=== PATIENT | female | born 1960 | race Caucasian/White ===

== ENCOUNTER 2017-06-09 13:17 | Inpatient (IN) | payer MEDICARE, MEDICAID ==
[~2017-06-09] VITALS: Ht 170.1 cm; Wt 83.7 kg
--- NOTE | ~2017-06-09 | ST ---
[place], [place] EXERCISE STRESS TEST REPORT NAME: [facility]LES [facility]ASSIDY [facility] #[facility] [id number] UNIT #: [id number] ROOM: 511 DOCTOR: JOHNY JORDAN MD BIRTHDATE: [birth year] DOS: INDICATION: Chest pain. PROCEDURE: The patient was brought into the stress lab. The procedure was explained with risks, benefits, and alternatives. Lexiscan was injected. The patient tolerated the procedure well. BLOOD PRESSURE RESPONSE: Resting blood pressure 104/70 with ending blood pressure 122/72. ELECTROCARDIOGRAM INTERPRETATION: The resting electrocardiogram showing profound bradycardia, heart rate of 46 with poor R-wave progression, mild nonspecific ST-T changes. Following the infusion, there was no evidence of any significant ST or T-wave changes suggestive of myocardial ischemia. No arrhythmias were noted. SUMMARY: 1. Adequate Lexiscan stress test. 2. Negative Lexiscan stress test for stress induced myocardial ischemia. 3. No arrhythmias were noted. 4. Myoview results will be reported separately. JOHNY JORDAN MD CM:STRESS:EXERCISE STRESS TEST REPORT [id number] JOHNY JORDAN MD
--- NOTE | ~2017-06-09 | CON ---
[place], [place] REPORT OF CONSULTATION NAME: MYLES CASSIDY UNIT #: [id number] ROOM: 511 DOCTOR: JULIAN YUANELYSIAMEEK BIRTHDATE: [birth year] DOS: REQUESTING PHYSICIAN: Dr. Lai. REASON FOR CONSULTATION: Chest pain. ASSESSMENT: 1. Current presentation with chest pain. 2. Unknown level of lipid. 3. Active tobacco abuse. 4. Significant early family history of heart disease. 5. Obesity with probable obstructive sleep apnea. PLAN: 1. Cycle cardiac enzymes. 2. Keep patient n.p.o. for Lexiscan stress test. 3. Enteric-coated aspirin 81 mg. 4. Check fasting lipid panel with management for an LDL less than 100 mg/dL. 5. Exercise and weight loss. 6. Consider sleep study. 7. Okay to discharge home should the stress test be without any evidence of ischemia. 8. Followup in our clinic within 2-3 months as an outpatient. 9. Call for any change in symptoms at any time. HISTORY AND PHYSICAL: The patient is a pleasant 56-year-old female, unknown to our practice, was referred by Dr. Lai for further evaluation of complaint of chest pain that apparently has been going for the past 3 days. The pain is substernal, slightly more towards the right. It is rated almost 6-7/10, nonradiating, without any associated nausea, vomiting or diaphoresis. The pain occurs; it can last up to 30 minutes. It can slightly worsen with activity. She is also reporting some shortness of breath, dyspnea on exertion with these activities. The patient does not follow a regular exercise program, but she is still able to go shopping. She sleeps on one pillow with no reported PND, orthopnea or pedal edema. Occasional skipped beats lasting seconds with no evidence associated cardiac complaints. No fever. No chills. No night sweats. Maintains good appetite. No weight loss. No change in what she can do now compared with 6 months ago. PAST MEDICAL HISTORY: As detailed in my assessment. SOCIAL HISTORY: The patient continues to smoke about 1 pack a day, has been doing this for the past 4 years. She is a social drinker. She does smoke occasional marijuana, but no history of illicit drug abuse. FAMILY HISTORY: Very significant early family history of heart disease. The patient's father started his heart attacks at age 39. He in his late 40s. Her brother also in his 40s with myocardial infarction. CURRENT MEDICATIONS: On presentation is Lovenox, ____, Restoril, Zofran, [place], [place] REPORT OF CONSULTATION NAME: MYLES CASSIDY UNIT #: [id number] ROOM: 511 DOCTOR: JOHNY JORDAN MD BIRTHDATE: [birth year] morphine, Dulcolax, [place], Tylenol. ALLERGIES: The patient has no known drug allergies. REVIEW OF SYSTEMS: Currently, the patient denies any headache, diplopia or blurry vision. No fever. No chills. No night sweats. No abdominal pain. No bright blood per rectum. No tarry stools. ____ joint pain. No muscular pain. No anxiety. No depression. No polyuria. No polydipsia. No skin rash. Review of all other systems has been negative. PHYSICAL EXAMINATION: GENERAL: The patient is alert and oriented x3, quite pleasant. VITAL SIGNS: The patient's blood pressure 109/64, heart rate 53, respiratory rate of 14, temperature 98.4. HEENT: Extraocular muscles intact. Pupils equal, round, reactive to light. Conjunctivae: No pallor. Throat: No petechiae. NECK: Good upstroke. Unable to appreciate any bruit. No lymphadenopathy. No thyromegaly. HEART: S1, S2 with faint holosystolic murmur in the left upper sternal border. No rub. No retrosternal heave. CHEST AND BACK: No deformities. LUNGS: Decreased air movement, but no lalo wheezing or rales. ABDOMEN: Obese, soft, nontender, present bowel sounds. No masses. No bruits. LOWER EXTREMITIES: There is no edema, with faint distal pulses. NEUROLOGIC: Grossly nonfocal. SKIN: No significant rash. DIAGNOSTIC DATA: Electrocardiogram showed normal sinus rhythm with mild nonspecific ST changes and poor R-wave progression. LABORATORY DATA: White count is 9.9, hemoglobin 13.8. Potassium 4.0. GFR more than 60%. Magnesium 2.2. Troponin normal x 2 sets. Vitamin D is 28. Normal thyroid function test. JOHNY JORDAN MD CM:CONSTR:REPORT OF CONSULTATION 0923 06/10/17 1743 interface
[2017-06-09 13:25] VITALS: BP 117/56
[2017-06-09 13:43] LABS: BASO # 0.1 10*3/uL (0.0-0.1); BASO % 0.9 % (0.0-1.0); EOS # 0.3 10*3/uL (0.0-0.4); EOS % 2.7 % (1.0-4.0); HEMATOCRIT 42.2 % (37.0-47.0); HEMOGLOBIN 14.3 g/dl (12.0-16.0); LYMPH % 43.4 % (27.0-41.0); MEAN CELL VOLUME 89.2 fl (81.0-99.0); MEAN CORPUSCULAR HGB 30.2 pg (27.0-31.0); MEAN CORPUSCULAR HGB CONC 33.9 g/dl (33.0-37.0); MEAN PLATELET VOLUME 9.6 fl (9.6-12.3); MONO # 0.5 10*3/uL (0.1-1.0); MONO % 5.3 % (3.0-9.0); NEUT # 4.4 10*3/uL (2.3-7.9); NEUT % 47.4 % (47.0-73.0); PLATELET COUNT AUTOMATED 321 10*3/uL (130-400); RED BLOOD COUNT 4.73 10*6/uL (4.10-5.10); RED CELL DISTRI WIDTH 12.7 % (0-14.5); WHITE BLOOD COUNT 9.2 10*3/uL (4.8-10.8)
[2017-06-09 13:52] LABS: ACT PARTIAL THROMBO TIME 23.5 SECONDS (20.8-31.5)
[2017-06-09 14:00] LABS: ALBUMIN 3.6 gm/dl (3.1-4.5); ALKALINE PHOSPHATASE 106 U/L (45-117); BUN 8 mg/dl (7-24); CHLORIDE 108 mmol/L (98-107); CREATININE 0.92 mg/dL (0.55-1.02); MAGNESIUM 1.9 mg/dL (1.5-2.1); POTASSIUM 3.9 mmol/L (3.5-5.1); SGOT/AST 11 IU/L (3-35); SGPT/ALT 15 U/L (12-78); SODIUM 138 mmol/L (136-145); TOTAL PROTEIN 7.3 gm/dL (6.4-8.2)
[2017-06-09 14:05] LABS: TROPONIN I < 0.015 ng/ml (<0.045)
[2017-06-09 14:30] VITALS: BP 128/58
[2017-06-09 15:40] VITALS: BP 105/64
--- NOTE | 2017-06-09 15:50 | NUR ---
PT IS PAIN FREE AT THIS TIME. REMAINS AWAKE AND ALERT WITHOUT DISTRESS. WILL BE ADMITTED. REPORT TO BE CALLED. HUA COCHRAN
[2017-06-09 16:00] VITALS: BP 119/69
--- NOTE | 2017-06-09 16:00 | NUR ---
A 56, admitted to , under the services of AZALIA Faust DO with a diagnosis of CHEST PAIN. Chief complaint is CHEST PAIN. Patient arrived via bed from ER. Monitor applied. Initial assessment completed. Vital signs taken and recorded. AZALIA FAUST DO notified of admission to the unit. Orders received. See assessment for past medical history, medications and allergies. Patient and/or family oriented to unit. [facility] visitation policy reviewed. Clothing/patient valuable form completed. ROSARIO MERCADO
--- NOTE | 2017-06-09 16:43 | NUR ---
MED REC VERIFIED WITH PT, PT HAD A LIST OF CURRENT MEDICATIONS
--- NOTE | 2017-06-09 16:55 | NUR ---
NOTIFIED OF CONSULT, EXERCISE STRESS TEST ORDERED FOR TOMORROW MORNING, PT TO BE NPO AFTER MIDNIGHT
[2017-06-09] MEDS ORDERED: ALAVERT10 M2 PO (19:05)
[2017-06-09] MEDS ORDERED: BUSPIRONE10 MG PO (19:05)
[2017-06-09] MEDS ORDERED: GABAPENTIN600 MG PO (19:05)
[2017-06-09] MEDS ORDERED: ZANTAC 150150 MG PO (19:05)
[2017-06-09] MEDS ORDERED: LEXAPRO20 MG PO (19:06)
[2017-06-09 20:00] VITALS: BP 123/65
--- NOTE | 2017-06-09 20:00 | NUR ---
SITTING UP IN BED WITH HOB ELEVATED. PULSE OX 97% ON ROOM AIR. LUNGS CLEAR WITH NO COUGH NOTED. HEP LOCK INTACT TO RIGHT ANTECUBITAL; SITE ASYMPTOMATIC. PT. DENIES PAIN OR DISCOMFORT AT THIS TIME. INFORMED OF NPO STATUS AFTER MIDNIGHT FOR STRESS TEST. VERBALIZED UNDERSTANDING. CALL LIGHT WITHIN REACH.
--- NOTE | 2017-06-09 21:39 | NUR ---
PT. BRADYCARDIC; INFORMED DR. BRITT. PT. ASYMPTOMATIC. WILL CONTINUE TO MONITOR.
[2017-06-10] VITALS: BP 118/74
--- NOTE | 2017-06-10 06:00 | NUR ---
PT. VOICES NO C/O AT THIS TIME. CALL LIGHT WITHIN REACH.
[2017-06-10 07:22] LABS: BASO # 0.1 10*3/uL (0.0-0.1); BASO % 0.7 % (0.0-1.0); EOS # 0.4 10*3/uL (0.0-0.4); EOS % 3.6 % (1.0-4.0); HEMATOCRIT 39.9 % (37.0-47.0); HEMOGLOBIN 13.8 g/dl (12.0-16.0); LYMPH # 3.8 10*3/uL (1.3-4.4); LYMPH % 38.9 % (27.0-41.0); MEAN CELL VOLUME 88.5 fl (81.0-99.0); MEAN CORPUSCULAR HGB 30.6 pg (27.0-31.0); MEAN CORPUSCULAR HGB CONC 34.6 g/dl (33.0-37.0); MEAN PLATELET VOLUME 9.9 fl (9.6-12.3); MONO # 0.8 10*3/uL (0.1-1.0); MONO % 7.6 % (3.0-9.0); NEUT # 4.8 10*3/uL (2.3-7.9); NEUT % 48.9 % (47.0-73.0); PLATELET COUNT AUTOMATED 296 10*3/uL (130-400); RED BLOOD COUNT 4.51 10*6/uL (4.10-5.10); RED CELL DISTRI WIDTH 12.9 % (0-14.5); WHITE BLOOD COUNT 9.9 10*3/uL (4.8-10.8)
[2017-06-10 07:47] LABS: BUN 11 mg/dl (7-24); CHLORIDE 109 mmol/L (98-107); CHOLESTEROL 187 mg/dL (<200); CREATININE 0.86 mg/dL (0.55-1.02); HDL CHOLESTEROL 51 mg/dl (40-60); LDL CHOLESTEROL 112 mg/dL (9-159); MAGNESIUM 2.2 mg/dL (1.5-2.1); PHOSPHOROUS 3.3 mg/dL (2.5-4.9); SODIUM 140 mmol/L (136-145); TRIGLYCERIDES 122 mg/dl (<150); VLDL CHOLESTEROL 24 mg/dL (6-40)
[2017-06-10 07:48] LABS: ACT PARTIAL THROMBO TIME 23.5 SECONDS (20.8-31.5)
[2017-06-10 08:00] VITALS: BP 109/64
[2017-06-10 08:35] LABS: VITAMIN D, 25-HYDROXY 28.2 ng/mL (30-100)
--- NOTE | 2017-06-10 09:00 | NUR ---
DR. JORDAN IN TO SEE PATIENT.
--- NOTE | 2017-06-10 09:00 | NUR ---
Commercial Illustrator in to talk to patient. Patient states lives at home with family. There are few steps in the home. Physician: yin hoffmann Pharmacy: Home health services: none Patient's level of ADLs: INDEPENDENT Patient has working utilities: all working DME: none Follow-up physician's appointment after d/c: will be made by hospitalist nurse director upon discharge Does patient want to access PORTAL?: no Discharge plan discussed with patient, patient lives at home with family, she is independent in adls and ambulation, patient states she will be going home when able and denies any home needs. ENRIQUE SCOTT
--- NOTE | 2017-06-10 09:13 | NUR ---
PT OFF FLOOR FOR STRESS TEST.
--- NOTE | 2017-06-10 11:00 | NUR ---
INFORMED CONSENT SIGNED FOR LEXISCAN STRESS TEST WITH DR JORDAN. RESTING EKG SB, HR 48, BP 104/72, POX 96% VIA RA. BREATH SOUNDS CLEAR. COMPLETED ONE MINUTE OF LEXISCAN PROTOCOL RECEIVING LEXISCAN 0.4 MG OVER 10 SECONDS. DEVELOPED SOB AND GAS PAIN THAT WAS RELIEVED DURING RECOVERY. HAD A PEAK HR OF 78, BP 130/78. LAST RECOVERY HR OF 69, BP 120/62. AWAITING NUCLEAR IMAGING IN STABLE CONDITION.
[2017-06-10 12:29] VITALS: BP 120/52
[2017-06-10] MEDS ORDERED: VITAMIN D31000 UNI1 PO (12:45)
--- NOTE | 2017-06-10 13:46 | NUR ---
Discharge instructions reviewed with patient/family. Patient receptive and verbalizes understanding. Follow-up care arranged. Written instructions given to patient/family. JAYA DOSS
== END 2017-06-10 16:36 | disposition home or self-care (01) | DRG 392 ==
LOC: ED 13:17 → EDHOLD 14:21 → 5E 14:21 → EDHOLD 14:50 → 5E 15:58
PROVIDERS: Emergency Medicine; Family Medicine; ADMIT Internal Medicine
PROC: 3E073KZ Introduction of Other Diagnostic Substance into Coronary Artery, Percutaneous Approach (ICD-10-PCS; principal; 2017-06-09)
PROC: 4A02XM4 Measurement of Cardiac Total Activity, External Approach (ICD-10-PCS; principal; 2017-06-09)
DX: K21.9 Gastro-esophageal reflux disease without esophagitis (principal); E87.8 Other disorders of electrolyte and fluid balance, not elsewhere classified; F32.9 Major depressive disorder, single episode, unspecified; M19.90 Unspecified osteoarthritis, unspecified site; R00.1 Bradycardia, unspecified; F41.9 Anxiety disorder, unspecified; E66.9 Obesity, unspecified; Z71.6 Tobacco abuse counseling; Z72.0 Tobacco use; Z82.49 Family history of ischemic heart disease and other diseases of the circulatory system; Z79.899 Other long term (current) drug therapy; Z90.710 Acquired absence of both cervix and uterus; Z90.49 Acquired absence of other specified parts of digestive tract; Z72.89 Other problems related to lifestyle; Z80.0 Family history of malignant neoplasm of digestive organs; Z68.25 Body mass index [BMI] 25.0-25.9, adult